=== PATIENT | male | born 1955 | race Caucasian/White ===

== ENCOUNTER 2023-09-21 19:00 | Emergency (ER) | payer MEDICARE, OTHER ==
[2023-09-21] MEDS ORDERED: traMADol 50 MG Tab ONE (20:40)
== END 2023-09-21 20:45 | disposition home or self-care (01) ==
LOC: LB.ED 19:00
DX: S62.663A Nondisplaced fracture of distal phalanx of left middle finger, initial encounter for closed fracture (principal); I10 Essential (primary) hypertension; E78.00 Pure hypercholesterolemia, unspecified; K21.9 Gastro-esophageal reflux disease without esophagitis; Z90.49 Acquired absence of other specified parts of digestive tract; Z79.899 Other long term (current) drug therapy; W19.XXXA Unspecified fall, initial encounter
CPT/HCPCS: 73030-LT; 73130-LT; 73562-LT; 99283; A9270-GY